=== PATIENT | female | born 1945 | race Caucasian/White ===

== ENCOUNTER 2017-08-16 06:31 | Day surgery (SDC) | payer OTHER, BC ==
[2017-08-11 13:59] VITALS: BMI 28.0
[2017-08-16] MEDS: PHENYLEPHRINE 2.5% OPHTH SOLN 15 ML BOTTLE ONE ×3 (06:55→07:05)
[2017-08-16] MEDS: CIPROFLOXACIN 0.3% EYE DROPS 5 ML BOTTLE ONE ×3 (06:55→07:05)
[2017-08-16] MEDS: TROPICAMIDE 1% OPHTH SOLN 15 ML BOTTLE ONE ×3 (06:55→07:05)
[2017-08-16] MEDS: CYCLOPENTOLATE 2% OPHTH SOLN 2 ML BOTTLE ONE ×3 (06:55→07:05)
[2017-08-16] MEDS ORDERED: TETRACAINE 0.5% OPHTH SOLN 2 ML BOTTLE ONE ×2 (07:10→07:11)
[2017-08-16] MEDS ORDERED: LIDOCAINE 1% P/F 10 MG/ML VIAL ONE (07:10)
[2017-08-16] MEDS ORDERED: BSS (NA/CA/MG/K) BALANCED SALT SOLUTION OPHTH SOLN 15 ML BOTTLE ONE (07:11)
[2017-08-16] MEDS ORDERED: NEO/POLYMYX B SULF/DEXAMETH OPHTHALMIC 5ML BOTTLE ONE (07:11)
[2017-08-16] MEDS ORDERED: CARBACHOL 0.01% INTRA-OCULAR 1.5 ML VIAL ONE (07:11)
[2017-08-16] MEDS ORDERED: EPINEPHrine/PF 1 MG/1 ML (1:1,000) AMPULE ONE (07:12)
[2017-08-16] MEDS ORDERED: PROPOFOL 20 ML ONE (07:37)
[2017-08-16] MEDS ORDERED: MIDAZOLAM HCL 2 MG/2 ML SINGLE DOSE VIAL ONE (07:37)
[2017-08-16] MEDS ORDERED: SUCCINYLCHOLINE CHLORIDE 200 MG/10 ML VIAL ONE (07:37)
[2017-08-16 08:39] VITALS: TEMP 98
--- NOTE | 2017-08-16 08:53 | OP ---
DATE OF OPERATION: 08/16/2017 OPERATIVE PROCEDURE: Lens phacoemulsification with posterior chamber intraocular lens placement, right eye. PREOPERATIVE DIAGNOSIS: Visually significant cataract of right eye. POSTOPERATIVE DIAGNOSIS: Visually significant cataract of right eye. SURGEON: Bernabe Thurston MD ANESTHESIA: MAC PROCEDURE: The patient was brought to the operating room and placed under monitored anesthesia care by Anesthesia. A drop of Tetracaine was then placed over the right eye. The patient was then prepped and draped in the usual sterile manner. A speculum was then placed over the right eye. The eye was then well irrigated with copious amounts of BSS (balanced salt solution). The operating microscope was then moved into position. A paracentesis was performed using a 15 degree blade. At this point 0.5 mL of 1% preservative free-lidocaine was injected into the anterior chamber. Amvisc plus was then injected into the anterior chamber. A clear corneal incision was then formed using a 2.2 mm keratome. A capsulorrhexis was then performed in a continuous circular fashion beginning with a cystotome completed with an Utratas forceps. Hydrodissection was then performed using BSS on a cannula. The phaco probe was then introduced through the corneal wound and the cataract was removed using the phaco chop technique. Approximately 3 seconds of absolute phaco time was used. The remaining cortex was then removed using irrigation and aspiration with an I/A probe. The capsule was then filled with regular Amvisc and the capsule was noted to be intact. A previously selected foldable posterior chamber intraocular lens was then injected into the capsule through the corneal wound using a lens injector. It was then dialed into position using a Sinskey hook. The Amvisc was then removed using irrigation and aspiration. Miostat was then injected through the paracentesis to constrict the pupil. The paracentesis and corneal wound were then hydrated and noted to be water tight. A drop of Maxitrol was then placed over the eye. The speculum was removed and clear shield was taped over the eye. The patient tolerated the procedure well and there were no surgical complications. The patient was asked to follow up in my office the next day. BERNABE THURSTON M.D. [facility]/[id number]
[2017-08-16 09:21] VITALS: BP 117/62; PULSE 60
== END 2017-08-16 09:20 | disposition home or self-care (01) ==
LOC: FASU 06:31
PROVIDERS: ATTEND Ophthalmology
PROC: 08RJ3JZ Replacement of Right Lens with Synthetic Substitute, Percutaneous Approach (ICD-10-PCS; principal; 2017-08-16 08:18)
DX: H26.8 Other specified cataract (principal)

== ENCOUNTER 2021-08-31 20:44 | Emergency (ER) | payer OTHER, BC ==
[2021-08-31 20:49] VITALS: TEMP 98.3; BMI 27.1
[2021-08-31 21:06] VITALS: PULSE 95
[2021-08-31] MEDS ORDERED: ACETAMINOPHEN 325 MG TABLET (FP) PO ONE (21:36)
[2021-08-31] MEDS ORDERED: ACETAMINOPHEN 325 MG TABLET (FP) ONE (21:43)
[2021-08-31 21:50] VITALS: BP 156/85
== END 2021-08-31 21:57 | disposition home or self-care (01) ==
LOC: FER 20:44
DX: I10 Essential (primary) hypertension (principal)
CPT/HCPCS: 99283-25

== ENCOUNTER 2022-01-16 01:54 | Emergency (ER) | payer OTHER, BC ==
[2022-01-16 02:02] VITALS: BMI 26.5
[2022-01-16 02:43] VITALS: BP 148/73; PULSE 74; RESP 18
[2022-01-16] MEDS ORDERED: ACETAMINOPHEN 500 MG TABLET (FP) PO ONE (02:54)
[2022-01-16] MEDS ORDERED: ACETAMINOPHEN 325 MG TABLET (FP) ONE (03:11)
[2022-01-16 03:41] LABS: BASO % 0.3 % (0-2.0); EOS % 0.5 % (0-4.5); HEMATOCRIT 38.9 % (32.4-45.2); HEMOGLOBIN 13.3 GM/dL (10.7-15.3); LYMPH % 10.8 % (8-40); MCH 31.8 pg (25.7-33.7); MCHC 34.2 g/dl (32.0-36.0); MEAN CELL VOLUME 92.9 fl (80-96); MEAN PLT VOLUME 9.4 fl (7.5-11.1); MONO % 5.9 % (3.8-10.2); NEUT % 82.5 % (42.8-82.8); PLATELET COUNT 167 10^3/uL (134-434); RBC 4.19 M/mm3 (3.60-5.2); RDW 13.9 % (11.6-15.6); WHITE BLOOD COUNT 7.3 K/mm3 (4.0-10.0)
[2022-01-16 03:47] LABS: INR 1.13 (0.83-1.09)
[2022-01-16 03:49] LABS: ACTIVATED PTT 22.9 SECONDS (25.2-36.5)
[2022-01-16 04:03] LABS: CALCIUM 9.4 mg/dL (8.5-10.1)
[2022-01-16 04:04] LABS: ALBUMIN 4.4 g/dl (3.4-5.0); BLOOD UREA NITROGEN 22.3 mg/dL (7-18); MAGNESIUM 2.2 mg/dL (1.8-2.4)
[2022-01-16 04:06] LABS: CREATININE 0.9 mg/dL (0.55-1.3)
[2022-01-16 04:08] LABS: BILIRUBIN,TOTAL 0.4 mg/dL (0.2-1); TOT PROT 7.6 g/dl (6.4-8.2)
[2022-01-16] MEDS ORDERED: METOPROLOL TARTRATE 25 MG TABLET (FP) PO ONE (06:16)
[2022-01-16] MEDS ORDERED: LISINOPRIL 20 MG TABLET PO ONE (06:16)
[2022-01-16] MEDS ORDERED: METOPROLOL TARTRATE 25 MG TABLET (FP) ONE (06:20)
[2022-01-16] MEDS ORDERED: LISINOPRIL 20 MG TABLET ONE (06:21)
== END 2022-01-16 06:27 | disposition home or self-care (01) ==
LOC: JER 01:54
DX: R00.2 Palpitations (principal)
CPT/HCPCS: 36415; 71046-TC-FY; 80053; 83690; 83735; 84484; 85025; 85610; 85730; 93005; 93010; 99284-25

== ENCOUNTER 2023-04-21 08:44 | Day surgery (SDC) | payer OTHER, BC ==
[2023-04-13 15:20] VITALS: BMI 29.2
[2023-04-21 10:23] VITALS: RESP 18
[2023-04-21 10:46] VITALS: BP 133/69; PULSE 81; TEMP 97.1
== END 2023-04-21 11:05 | disposition home or self-care (01) ==
LOC: FASU-ENDO 08:44
PROVIDERS: ATTEND Internal Medicine Gastroenterology
PROC: 0DB68ZX Excision of Stomach, Via Natural or Artificial Opening Endoscopic, Diagnostic (ICD-10-PCS; 2023-04-21)
PROC: 0DB48ZX Excision of Esophagogastric Junction, Via Natural or Artificial Opening Endoscopic, Diagnostic (ICD-10-PCS; 2023-04-21)
PROC: 0DB98ZX Excision of Duodenum, Via Natural or Artificial Opening Endoscopic, Diagnostic (ICD-10-PCS; principal; 2023-04-21 09:52)
DX: K29.50 Unspecified chronic gastritis without bleeding (principal); K20.90 Esophagitis, unspecified without bleeding; K31.7 Polyp of stomach and duodenum; K44.9 Diaphragmatic hernia without obstruction or gangrene; R10.13 Epigastric pain
CPT/HCPCS: 88305-TC; 88342-TC

== ENCOUNTER 2023-07-15 18:45 | Emergency (ER) | payer OTHER, BC ==
[2023-07-15 18:54] VITALS: TEMP 97.5; BMI 26.4
[2023-07-15] MEDS ORDERED: cloNIDine HCL 0.1 MG TABLET ONE (19:49)
[2023-07-15] MEDS: cloNIDine HCL 0.1 MG TABLET PO STA (19:50)
[2023-07-15 20:53] LABS: HEMATOCRIT 39.1 % (32.4-45.2); HEMOGLOBIN 13.1 G/dL (10.7-15.3); MCH 31.5 pg (25.7-33.7); MCHC 33.4 g/dl (32.0-36.0); MEAN CELL VOLUME 94.4 fl (80-96); MEAN PLT VOLUME 9.2 fl (7.5-11.1); PLATELET COUNT 175.2 10^3/uL (134-434); RBC 4.14 10^6/uL (3.60-5.2); RDW 13.9 % (11.6-15.6); WHITE BLOOD COUNT 6.8 10^3/uL (4.0-10.8)
[2023-07-15] MEDS ORDERED: ACETAMINOPHEN 500 MG TABLET (FP) ONE (20:54)
[2023-07-15] MEDS: ACETAMINOPHEN 500 MG TABLET (FP) PO ONE (20:56)
[2023-07-15 21:07] VITALS: PULSE 88
[2023-07-15 21:09] LABS: ALBUMIN 4.5 g/dl (3.4-5.0); BILIRUBIN,TOTAL 0.7 mg/dl (0.2-1); CALCIUM 9.4 mg/dl (8.5-10.1); CREATININE 0.8 mg/dl (0.6-1.3); POTASSIUM 4.3 mmol/L (3.5-5.1); TOT PROT 6.6 g/dl (6.4-8.2)
[2023-07-15 21:22] VITALS: BP 114/62; RESP 17
== END 2023-07-15 21:38 | disposition home or self-care (01) ==
LOC: FER 18:45
DX: R51.9 Headache, unspecified (principal); M54.6 Pain in thoracic spine; I10 Essential (primary) hypertension
CPT/HCPCS: 36415; 80053; 82550; 84484; 85027; 93005; 99284-25

== ENCOUNTER 2023-07-18 07:17 | Day surgery (SDC) | payer OTHER, BC ==
[2023-07-18] MEDS ORDERED: PROPOFOL 200 ML ONE (07:23)
[2023-07-18 07:43] VITALS: BMI 26.5
[2023-07-18 08:31] LABS: ALK PHOS 75 U/L (45-117); ANION GAP 12 mmol/L (4-13); BILIRUBIN,TOTAL 0.7 mg/dl (0.2-1); CALCIUM 10.1 mg/dl (8.5-10.1); CHLORIDE 102 mmol/L (98-107); CO2 24 mmol/L (21-32); CREATININE 0.8 mg/dl (0.6-1.3); GLUCOSE,RANDOM 130 mg/dl (74-106); SGOT/AST 17 U/L (15-37); SGPT/ALT 15 U/L (7-52); SODIUM 138 mmol/L (136-145); TOT PROT 7.2 g/dl (6.4-8.2)
[2023-07-18 14:09] VITALS: TEMP 97.1
[2023-07-18 14:14] VITALS: BP 108/55; PULSE 68; RESP 15
== END 2023-07-18 09:55 | disposition home or self-care (01) ==
LOC: FASU-ENDO 07:17
PROVIDERS: ATTEND Internal Medicine Gastroenterology
PROC: 0DBL8ZX Excision of Transverse Colon, Via Natural or Artificial Opening Endoscopic, Diagnostic (ICD-10-PCS; principal; 2023-07-18 08:40)
DX: Z12.11 Encounter for screening for malignant neoplasm of colon (principal); D12.3 Benign neoplasm of transverse colon; K57.30 Diverticulosis of large intestine without perforation or abscess without bleeding; K64.1 Second degree hemorrhoids
CPT/HCPCS: 36415; 80053; 88305-TC